=== PATIENT | female | born 1975 | race Caucasian/White ===

== ENCOUNTER 2020-10-20 10:06 | Emergency (ER) | payer BC, MEDICAID ==
[~2020-10-20] VITALS: Ht 170.2 cm; Wt 111.6 kg
[2020-10-20 10:15] VITALS: BP 137/73
--- NOTE | 2020-10-20 10:20 | NUR ---
PT AMBULATED TO BED 1.
[2020-10-20] MEDS ORDERED: KETOROLAC 15 MG/ML VIAL IVP ONE (11:20)
[2020-10-20] MEDS ORDERED: NACL 0.9% 1,000 ML IV ONE (11:20)
--- NOTE | 2020-10-20 11:30 | NUR ---
45/F presents to ED with c/o dizziness and headache since last night. Patient states she woke up around 1am feeling "dizzy, shaking and sweaty and I could see black spots." Patient states she took Tylenol and tried to go back to sleep but only with mild relief. Patient states she felt a little better this morning and attempted to go to work but states all of her symptoms returned, stating "my neck started feeling tight and my heart was racing." Patient denies chest pain, sob, abdominal pain, states she had two episodes of vomiting on Sunday but none sense. Patient placed in gown on bedside bus monitor.
[2020-10-20 12:36] LABS: BASOPHILS % (AUTO) 0.4 % (0.0-2.0); EOSINOPHILS # (AUTO) 0.1 K/uL (0-0.4); EOSINOPHILS % (AUTO) 1.4 % (0.0-4.0); HEMATOCRIT 40.1 % (36-48); HEMOGLOBIN 13.4 g/dL (12.0-16.0); LYMPHOCYTES # (AUTO) 2.1 K/uL (2.5-16.5); MEAN CORPUSCULAR HEMOGLOBIN 31 pg (27-31); MEAN CORPUSCULAR HGB CONC 33 g/dL (33-37); MEAN CORPUSCULAR VOLUME 91.3 fL (80-94); MONOCYTES # (AUTO) 0.6 K/uL (0.8-1.0); MONOCYTES % (AUTO) 9.5 % (1.7-9.3); NEUTROPHILS # (AUTO) 3.1 K/uL (1.8-7.7); NEUTROPHILS % (AUTO) 52.7 % (42.2-75.2); PLATELET COUNT (AUTO) 182 K/uL (140-450); WHITE BLOOD COUNT (AUTO) 5.9 K/uL (4.8-10.8)
[2020-10-20 12:45] LABS: ALBUMIN 3.8 g/dL (3.4-5.0); ANION GAP 8.6 (8-16); CARBON DIOXIDE 28.4 mmol/L (21-32); CREATININE 0.7 mg/dL (0.6-1.3); TOTAL BILIRUBIN 0.2 mg/dL (0.0-1.0)
[2020-10-20] MEDS ORDERED: ACET-8386 PO (13:16)
[2020-10-20 13:35] VITALS: BP 116/69
--- NOTE | 2020-10-20 13:35 | NUR ---
Patient discharged with v/s stable. Written and verbal after care instructions given and explained. Patient alert, oriented and verbalized understanding of instructions. Ambulatory with steady gait. All questions addressed prior to discharge. ID band removed. Patient advised to follow up with PMD. Rx of HYDROCODONE/ACETAMINOPHEN given. Patient educated on indication of medication including possible reaction and side effects. Opportunity to ask questions provided and answered.
== END 2020-10-20 13:35 | disposition home or self-care (01) ==
LOC: MED 10:06
DX: I10 Essential (primary) hypertension (principal); R42 Dizziness and giddiness; G44.209 Tension-type headache, unspecified, not intractable; M79.18 Myalgia, other site; M54.6 Pain in thoracic spine; Z98.890 Other specified postprocedural states; Z79.891 Long term (current) use of opiate analgesic; Z88.6 Allergy status to analgesic agent; Z88.5 Allergy status to narcotic agent
CPT/HCPCS: 36415; 80053; 81002; 81025; 82550; 84484; 85025; 93005; 96361; 96374; 99285; J1885; J7030